=== PATIENT | female | born 1975 | race Caucasian/White ===

== ENCOUNTER → 2017-06-26 | Outpatient (CLI) | payer BC ==
[2004-11-07 21:19] VITALS: TEMP 98.8
[~2017-06-26] MED LIST: MOTRIN 600600 MG/TAB PO
== END ==
LOC: MC.RAD 09:56
DX: Z12.31 Encounter for screening mammogram for malignant neoplasm of breast (principal)

== ENCOUNTER → 2019-06-01 | Outpatient (CLI) | payer BC ==
[2004-11-07 21:19] VITALS: TEMP 98.8
== END ==
LOC: MC.RAD 10:24
DX: Z12.31 Encounter for screening mammogram for malignant neoplasm of breast (principal)

== ENCOUNTER → 2021-06-22 | Outpatient (CLI) | payer BC ==
[2004-11-07 21:19] VITALS: TEMP 98.8
== END ==
LOC: MC.RAD 13:15
DX: Z12.31 Encounter for screening mammogram for malignant neoplasm of breast (principal)

== ENCOUNTER → 2023-10-08 | Outpatient (CLI) | payer OTHER ==
[2004-11-07 21:19] VITALS: BP 133/87; PULSE 102; TEMP 98.8
== END ==
LOC: MC.RAD 11:23
DX: Z12.31 Encounter for screening mammogram for malignant neoplasm of breast (principal)